=== PATIENT | female | born 1985 | race Caucasian/White ===

== ENCOUNTER 2018-08-15 10:33 | Emergency (ER) | payer SELFPAY ==
[~2018-08-15] VITALS: Ht 167.6 cm; Wt 73.9 kg
[2018-08-15 11:05] VITALS: BP 151/97
[2018-08-15] MEDS ORDERED: HYDROcodone-ACET 10/325MG TAB PO ONE (13:45)
[2018-08-15] MEDS ORDERED: LET TOPICAL SOLN 5 ML TOP ONE (13:45)
[2018-08-15] MEDS ORDERED: LIDOCAINE 1% (LOCAL ANESTH.) PF 5ml SDV ID ONE (13:45)
[2018-08-15] MEDS ORDERED: LIDOCAINE 1% HCL (LOCAL ANESTH.) INJ 20ML MDV ONE (14:02)
[2018-08-15] MEDS ORDERED: LORazepam 2MG/ML-1ML VIAL ONE (19:59)
== END 2018-08-15 15:30 | disposition home or self-care (01) ==
LOC: ER 10:33
DX: N75.0 Cyst of Bartholin's gland (principal)
CPT/HCPCS: 56420; 99283; J2001; J3490

== ENCOUNTER 2023-06-11 11:10 | Emergency (ER) | payer BC, OTHER ==
[~2023-06-11] VITALS: Ht 167.6 cm; Wt 84.0 kg
[2023-06-11] MEDS ORDERED: KETOROLAC TROMETH 30 MG/ML 1ML VIAL IV ONE (11:30)
[2023-06-11 11:43] LABS: Basophils # (auto) 0.1 10 ^3/uL (0-0.2); Eosinophils # (auto) 0.2 10 ^3/uL (0-0.8); Hemoglobin 7.8 g/dL (12.2-16.2)
[2023-06-11 11:45] LABS: Basophils % (auto) 0.7 % (0.0-2.0); Eosinophils % (auto) 1.7 % (0.0-7.0); Hematocrit 26.5 % (36.0-46.0); Lymphocytes % (auto) 7.9 % (10.0-50.0); Mean Corpuscular Hemoglobin 18.1 pg (28.0-32.0); Mean Corpuscular Hgb Conc. 29.4 g/dL (32.0-36.0); Mean Corpuscular Volume 61.7 fL (80.0-100.0); Monocytes # (auto) 0.7 10 ^3/uL (0-1.3); Neutrophils # (auto) 10.3 10 ^3/uL (1.6-8.6); Neutrophils % (auto) 83.7 % (37.0-80.0); Red Blood Cells 4.29 10^6/uL (4.0-5.20); Red Cell Distribution Width 17.1 % (11.8-14.3); White Blood Cell 12.3 10^3/uL (4.4-10.8)
[2023-06-11 12:08] LABS: Alanine Aminotransferase 30 U/L (7-40); Albumin 4.3 g/dL (3.2-4.8); Alkaline Phosphatase 126 U/L (46-116); Anion Gap 6 (5-15); Aspartate Aminotransferase 55 U/L (13-40); BUN/Creatinine Ratio 17.8 (10.0-20.0); Blood Urea Nitrogen 13 mg/dL (9-23); Calcium 8.9 mg/dL (8.5-10.1); Carbon Dioxide 24 mmol/L (20-30); Chloride 112 mmol/L (98-107); Cholesterol 123 mg/dL (< 200); Glucose 105 mg/dL (74-106); LDL Cholesterol 84 mg/dL (< 100); Potassium 4.1 mmol/L (3.5-5.1); Sodium 142 mmol/L (136-145); Triglycerides 80 mg/dL (< 150)
[2023-06-11 12:09] LABS: Bilirubin, Total 0.4 mg/dL (0.2-1.0); HDL Cholesterol 35 mg/dL (40-59); Total Protein 6.9 g/dL (5.7-8.2)
[2023-06-11 12:26] LABS: Lipase 50 U/L (12-53)
[2023-06-11 13:05] VITALS: BP 144/86; PULSE 114; RESP 15; TEMP 97.4; O2SAT 95
[2023-06-11 13:09] LABS: Hypochromia Moderate; Ovalocytes FEW; Platelet Estimate Increased
[2023-06-11 13:10] LABS: Anisocytosis Slight
== END 2023-06-11 13:06 | disposition home or self-care (01) ==
LOC: ER 11:10
DX: R07.89 Other chest pain (principal); D64.9 Anemia, unspecified; R10.2 Pelvic and perineal pain
CPT/HCPCS: 36415; 71045; 80053; 80061; 83690; 84484; 84702; 85025; 93005; 96374; 99285; J1885